=== PATIENT | male | born 1955 | race Caucasian/White ===

== ENCOUNTER 2023-08-26 09:29 | Outpatient (AMB) | payer BC, SELFPAY ==
[2023-08-26 09:30] VITALS: BP 132/72; PULSE 80; O2SAT 95; BMI 28.3
--- NOTE | 2023-08-26 09:30 | HO.NEPHOV ---
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 He has history of atrial fibrillation and obstructive sleep apnea. He monitors his blood pressure at home. He is blood pressure readings at home are about 10 mm lower than the [place] blood pressure readings. He has been on rate controlling medications for his AFib which has been helping with his hypertension. He also had been on ramipril which was changed to lotrel by PCP. He is compliant with his CPAP. He does not take excessive sodium in the diet. He denies any peripheral arterial symptoms, history of coronary artery disease, CVA, carotid stenosis or renal artery stenosis. His serum creatinine has been between 1-1.1. He has history of paroxysmal atrial fibrillation. He has history of cardioversion but he had recurrent episodes and underwent atrial fibrillation ablation. He denies chest pain, shortness of breath, paroxysmal nocturnal dyspnea, orthopnea, pedal edema, palpitation, syncope, orthostatic symptoms, hematuria, pedal edema. His stress echo was normal. His echocardiogram in October of 2021 showed normal left atrial size but mild LVH and normal ejection fraction with no significant valvular disease. He has no history of hypokalemia, uncontrolled thyroid disorders or hypercalcemia. He is on diltiazem 240 mg daily, hydrochlorothiazide 12.5 mg daily along with amlodipine-benazepril 5-20 daily. There were no other new active complaints at the time of this office visit. [facility] Medical History (Updated 08/26/23 @ 10:13 by Gilberto Delacruz MD) Atrial fibrillation Arrhythmia Palpitations Dyspnea PVC (premature ventricular contraction) PHILL on CPAP Hyperlipidemia Hypertension Surgical History (Updated 08/26/23 @ 09:40 by LOREN Rose) History of cardiac radiofrequency ablation Family History Mother Multiple myeloma Hypertension Hypercholesteremia Social History (Reviewed 08/26/23 @ 09:32 by GRICEL Rose Patient Tobacco Use Status: Never used Tobacco Review of Systems Const All systems reviewed & are unremarkable except as noted in HPI and below Physical Exam Vital Signs: Last Vital Signs Pulse 80 08/26/23 09:30 BP 132/72 08/26/23 09:30 Pulse Ox 95 08/26/23 09:30 Oxygen Delivery Method Room Air 08/26/23 09:30 BMI result Body Mass Index 28.3 Const General: comfortable and no acute distress Orientation/consciousness: patient oriented x3 HEENT Head: Yes normocephalic Mouth: Normal oral and palatal mucosa present Eyes EOM: EOMs intact bilaterally Neck Neck: Yes supple Resp Auscultation: clear to auscultation bilaterally Cardio Jugular venous distension: no JVD Rate: regular rate GI Palpation (GI): Soft to palpation Auscultation: normal bowel sounds General: Yes no CVA tenderness Back/Spine/Pelvis Back: no CVA tenderness Skin General skin exam: no rashes or lesions noted Neuro General: patient oriented x3 and moves all extremities Extrem General: Yes no pedal edema Results Reviewed Nephrology Results: Renal US 09/11/23 Assessment & Plan Assessment & Plan (1) Hypertension: Code(s): I10 - Essential (primary) hypertension Category: Medical Qualifiers: Hypertension type: primary hypertension Qualified Code(s): I10 - Essential (primary) hypertension Plan Daryl has longstanding hypertension and has been on multiple antihypertensive medications. Recently more medications were added for better blood pressure control. He is known to have mild LVH but no proteinuria or significant renal dysfunction. He has obstructive sleep apnea and is compliant with CPAP. He has no history of carotid stenosis, congestive heart failure, peripheral arterial disease. I have ordered Doppler of his renal arteries and a 24 hour ambulatory blood pressure monitor. I will do further studies including thyroid function if his blood pressure is uncontrolled by the ambulatory blood pressure monitor. His volume status was optimal. I asked him to cut back salt in the food and maintain adequate activity with some weight loss.He is on diltiazem 240 mg daily, hydrochlorothiazide 12.5 mg daily along with amlodipine-benazepril 5-20 daily. Over 60 minutes have been spent reviewing all his previous medical records, patient encounter and documentation. Answered all questions. Follow-up appointment given. Further management is pending evolving data. Orders: Orders US renal BI 08/26/23 I10 - Essential (primary) hypertension US renal doppler 08/26/23 I10 - Essential (primary) hypertension AMB 24 HR B/P Monitor PLACEMENT 08/26/23 I10 - Essential (primary) hypertension Coding Level of Care Code New Pt Level 5 (80354) Diagnoses Primary hypertension I10 Hypertension type: primary hypertension
== END 2023-08-26 10:16 | disposition home or self-care (01) ==
PROVIDERS: PCP Internal Medicine; Visit Provider Internal Medicine Nephrology
DX: I10 Essential (primary) hypertension (principal)
CPT/HCPCS: 99205

== ENCOUNTER → 2023-08-26 09:29 | Outpatient (BNVA) | payer BC, SELFPAY | PROVIDERS: PCP Internal Medicine; Visit Provider Internal Medicine Nephrology ==

== ENCOUNTER → 2023-09-04 08:55 | Outpatient (BNVA) | payer BC, SELFPAY | PROVIDERS: PCP Internal Medicine; Visit Provider Internal Medicine Nephrology ==

== ENCOUNTER → 2023-09-05 09:02 | Outpatient (BNVA) | payer BC, SELFPAY | PROVIDERS: PCP Internal Medicine; Visit Provider Internal Medicine Nephrology ==

== ENCOUNTER 2023-09-11 08:17 | Outpatient (REF) | payer BC, SELFPAY ==
--- NOTE | ~2023-09-11 | US_ITS ---
EXAMINATION: ULTRASOUND RENAL WITH DOPPLER CLINICAL INFORMATION: Essential primary hypertension COMPARISON: None. TECHNIQUE: Real-time grayscale, color Doppler, and duplex Doppler evaluation of the kidneys and renal vasculature was performed. FINDINGS: RENAL MEASUREMENTS: Right: 10.2 x 5.1 x 4.8 cm (Sag x AP x TV) Left: 10.2 x 6.1 x 5.0 cm (Sag x AP x TV) The renal parenchyma appears normal. Minimal left caliectasis without overt hydronephrosis. No right hydronephrosis. No nephrolithiasis. DOPPLER INTERROGATION: Aorta: 92 cm/sec Right Main Renal Artery: Proximal: 221 cm/sec Mid: 268 cm/sec Distal: 104 cm/sec Right Segmental Renal Artery Resistive Indices: Upper: 0.64 Mid: 0.6 Lower: 0.6 Left Main Renal Artery: Proximal: 153 cm/sec Mid: 206 cm/sec Distal: 142 cm/sec Left Segmental Renal Artery Resistive Indices: Upper: 0.6 Mid: 0.6 Lower: 0.7 RAR: Right: 2.9 Left: 2.2 The bilateral renal veins are patent. US/US renal BI IMPRESSION: Less than 60% stenosis of the bilateral renal arteries by velocity criteria. Normal bilateral resistive indices.
--- NOTE | ~2023-09-11 | US_ITS ---
EXAMINATION: ULTRASOUND RENAL WITH DOPPLER CLINICAL INFORMATION: Essential primary hypertension COMPARISON: None. TECHNIQUE: Real-time grayscale, color Doppler, and duplex Doppler evaluation of the kidneys and renal vasculature was performed. FINDINGS: RENAL MEASUREMENTS: Right: 10.2 x 5.1 x 4.8 cm (Sag x AP x TV) Left: 10.2 x 6.1 x 5.0 cm (Sag x AP x TV) The renal parenchyma appears normal. Minimal left caliectasis without overt hydronephrosis. No right hydronephrosis. No nephrolithiasis. DOPPLER INTERROGATION: Aorta: 92 cm/sec Right Main Renal Artery: Proximal: 221 cm/sec Mid: 268 cm/sec Distal: 104 cm/sec Right Segmental Renal Artery Resistive Indices: Upper: 0.64 Mid: 0.6 Lower: 0.6 Left Main Renal Artery: Proximal: 153 cm/sec Mid: 206 cm/sec Distal: 142 cm/sec Left Segmental Renal Artery Resistive Indices: Upper: 0.6 Mid: 0.6 Lower: 0.7 RAR: Right: 2.9 Left: 2.2 The bilateral renal veins are patent. US/US renal doppler IMPRESSION: Less than 60% stenosis of the bilateral renal arteries by velocity criteria. Normal bilateral resistive indices.
== END 2023-09-11 08:18 | disposition home or self-care (01) ==
LOC: HO.US 08:17
PROVIDERS: PCP Internal Medicine; Visit Provider Internal Medicine Nephrology
DX: I10 Essential (primary) hypertension (principal)
CPT/HCPCS: 76775; 93975

== ENCOUNTER 2023-09-25 11:07 | Outpatient (AMB) | payer BC, SELFPAY ==
--- NOTE | 2023-09-25 11:20 | HO.NEPHOV ---
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 He has history of atrial fibrillation and obstructive sleep apnea. He monitors his blood pressure at home. He is blood pressure readings at home are about 10 mm lower than the manual blood pressure readings. He has been on rate controlling medications for his AFib which has been helping with his hypertension. He also had been on ramipril which was changed to lotrel by PCP. He is compliant with his CPAP. He does not take excessive sodium in the diet. He denies any peripheral arterial symptoms, history of coronary artery disease, CVA, carotid stenosis or renal artery stenosis. His serum creatinine has been between 1-1.1. He has history of cardioversion but he had recurrent episodes and underwent atrial fibrillation ablation. He denies chest pain, shortness of breath, paroxysmal nocturnal dyspnea, orthopnea, pedal edema, palpitation, syncope, orthostatic symptoms, hematuria, pedal edema. His stress echo was normal. His echocardiogram in October of 2021 showed normal left atrial size but mild LVH and normal ejection fraction with no significant valvular disease. He has no history of hypokalemia, uncontrolled thyroid disorders or hypercalcemia. He is on diltiazem 240 mg daily along with amlodipine-benazepril 5-20 daily. He has not been getting enough sleep and strongly feels his CPAP settings are not at a place where it should be. He underwent a 24 hour ambulatory blood pressure monitor which showed well controlled blood pressure readings during the day but has been high during the night when he is on CPAP machine. [facility] Medical History (Updated 08/26/23 @ 10:13 by Gilberto Delacruz MD) Atrial fibrillation Arrhythmia Palpitations Dyspnea PVC (premature ventricular contraction) PHILL on CPAP Hyperlipidemia Hypertension Surgical History History of cardiac radiofrequency ablation Family History Mother Multiple myeloma Hypertension Hypercholesteremia Social History Patient Tobacco Use Status: Never used Tobacco Review of Systems Const All systems reviewed & are unremarkable except as noted in HPI and below Physical Exam Vital Signs: Last Vital Signs Pulse 74 09/25/23 11:21 BP 124/64 09/25/23 11:21 Pulse Ox 95 09/25/23 11:21 Oxygen Delivery Method Room Air 09/25/23 11:21 BMI result Body Mass Index 28.2 Const General: comfortable and no acute distress Orientation/consciousness: patient oriented x3 HEENT Head: Yes normocephalic Mouth: Normal oral and palatal mucosa present Eyes EOM: EOMs intact bilaterally Neck Neck: Yes supple Resp Auscultation: clear to auscultation bilaterally Cardio Jugular venous distension: no JVD Rate: regular rate GI Palpation (GI): Soft to palpation Auscultation: normal bowel sounds General: Yes no CVA tenderness Back/Spine/Pelvis Back: no CVA tenderness Skin General skin exam: no rashes or lesions noted Neuro General: patient oriented x3 and moves all extremities Extrem General: Yes no pedal edema Results Reviewed Nephrology Results: Renal US 09/11/23 Assessment & Plan Assessment & Plan (1) Hypertension: Code(s): I10 - Essential (primary) hypertension Category: Medical Qualifiers: Hypertension type: primary hypertension Qualified Code(s): I10 - Essential (primary) hypertension Plan Daryl has longstanding hypertension and has been on multiple antihypertensive medications. He is known to have mild LVH but no proteinuria or significant renal dysfunction. He has obstructive sleep apnea and is compliant with CPAP. He underwent a 24 hour ambulatory blood pressure monitor which showed her blood pressure readings while he is on CPAP. He has no history of carotid stenosis, congestive heart failure, peripheral arterial disease. His volume status was optimal. I asked him to cut back salt in the food and maintain adequate activity with some weight loss.He is on diltiazem 240 mg daily along with amlodipine-benazepril 5-20 daily, which he takes in the mornings. I suggested him to take Lotrel in the morning and diltiazem at night. He is going to contact his sleep physician to make further adjustments. He may need repeat ambulatory blood pressure monitor while he is not on CPAP. I did not make any medication changes today. Answered all questions. Follow-up appointment given. Further management is pending evolving data. Coding Level of Care Code Est Pt Level 4 (42821) Diagnoses Primary hypertension I10 Hypertension type: primary hypertension
[2023-09-25 11:21] VITALS: BP 124/64; PULSE 74; O2SAT 95; BMI 28.2
== END 2023-09-25 11:57 | disposition home or self-care (01) ==
PROVIDERS: PCP Internal Medicine; Visit Provider Internal Medicine Nephrology
DX: I10 Essential (primary) hypertension (principal)
CPT/HCPCS: 93790; 99214

== ENCOUNTER → 2023-09-25 11:07 | Outpatient (BNVA) | payer BC, SELFPAY | PROVIDERS: PCP Internal Medicine; Visit Provider Internal Medicine Nephrology ==

== ENCOUNTER 2024-01-01 10:50 | Outpatient (AMB) | payer BC, SELFPAY ==
--- NOTE | 2024-01-01 11:23 | HO.NEPHOV ---
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 He has history of atrial fibrillation and obstructive sleep apnea. He monitors his blood pressure at home. His CPAP has been adjusted. He has no A Fib now. He is off Elquis. He does not take excessive sodium in the diet. He denies any peripheral arterial symptoms, history of coronary artery disease, CVA, carotid stenosis or renal artery stenosis. His serum creatinine has been between 1-1.1. He has history of cardioversion but he had recurrent episodes and underwent atrial fibrillation ablation. He denies chest pain, shortness of breath, paroxysmal nocturnal dyspnea, orthopnea, pedal edema, palpitation, syncope, orthostatic symptoms, hematuria, pedal edema. His stress echo was normal. His echocardiogram in October of 2021 showed normal left atrial size but mild LVH and normal ejection fraction with no significant valvular disease. He has no history of hypokalemia, uncontrolled thyroid disorders or hypercalcemia. He feels well [facility] Medical History (Updated 08/26/23 @ 10:13 by Gilberto Delacruz MD) Atrial fibrillation Arrhythmia Palpitations Dyspnea PVC (premature ventricular contraction) PHILL on CPAP Hyperlipidemia Hypertension Surgical History History of cardiac radiofrequency ablation Family History Mother Multiple myeloma Hypertension Hypercholesteremia Social History Patient Tobacco Use Status: Never used Tobacco Review of Systems Const All systems reviewed & are unremarkable except as noted in HPI and below Physical Exam Vital Signs: Last Vital Signs Pulse 76 01/01/24 11:27 BP 130/70 01/01/24 11:27 Pulse Ox 95 01/01/24 11:27 Oxygen Delivery Method Room Air 01/01/24 11:27 BMI result Body Mass Index 28.5 Const General: comfortable and no acute distress Orientation/consciousness: patient oriented x3 HEENT Head: Yes normocephalic Mouth: Normal oral and palatal mucosa present Eyes EOM: EOMs intact bilaterally Neck Neck: Yes supple Resp Auscultation: clear to auscultation bilaterally Cardio Jugular venous distension: no JVD Rate: regular rate GI Palpation (GI): Soft to palpation Auscultation: normal bowel sounds General: Yes no CVA tenderness Back/Spine/Pelvis Back: no CVA tenderness Skin General skin exam: no rashes or lesions noted Neuro General: patient oriented x3 and moves all extremities Extrem General: Yes no pedal edema Results Reviewed Nephrology Results: Renal US 09/11/23 Assessment & Plan Assessment & Plan (1) Hypertension: Code(s): I10 - Essential (primary) hypertension Category: Medical Qualifiers: Hypertension type: primary hypertension Qualified Code(s): I10 - Essential (primary) hypertension Plan Daryl has longstanding hypertension and had been on multiple antihypertensive medications. He is known to have mild LVH but no proteinuria or significant renal dysfunction. He has obstructive sleep apnea and is compliant with CPAP. He has no history of carotid stenosis, congestive heart failure, peripheral arterial disease. His volume status was optimal. I asked him to cut back salt in the food and maintain adequate activity with some weight loss.He is on diltiazem 240 mg daily along with amlodipine-benazepril 5-20 daily, which he takes in the mornings. I suggested him to take Lotrel in the morning and diltiazem at night. I did not make any medication changes today. Answered all questions. Orders: Orders Creatinine Today I10 - Essential (primary) hypertension Electrolytes Today I10 - Essential (primary) hypertension Blood Urea Nitrogen Today I10 - Essential (primary) hypertension Coding Level of Care Code Est Pt Level 4 (49642) Diagnoses Primary hypertension I10 Hypertension type: primary hypertension
[2024-01-01 11:27] VITALS: BP 130/70; PULSE 76; O2SAT 95; BMI 28.5
== END 2024-01-01 11:45 | disposition home or self-care (01) ==
PROVIDERS: PCP Internal Medicine; Visit Provider Internal Medicine Nephrology
DX: I10 Essential (primary) hypertension (principal)
CPT/HCPCS: 99214